=== PATIENT | female | born 1965 | race Caucasian/White ===

== ENCOUNTER → 2016-11-08 10:43 | Outpatient (CLI) | payer OTHER | LOC: D.US 10:43 → D.MAMMO 15:45 | DX: R92.8 Other abnormal and inconclusive findings on diagnostic imaging of breast (principal) ==

== ENCOUNTER 2016-12-15 09:38 | Outpatient (CLI) | payer OTHER | END 2016-12-15 12:06 | LOC: D.MAMMO 09:38 | DX: R92.8 Other abnormal and inconclusive findings on diagnostic imaging of breast (principal) ==

== ENCOUNTER 2019-05-02 09:00 | Outpatient (CLI) | payer MEDICARE | END 2019-05-02 10:00 | disposition home or self-care (01) | LOC: D.MAMMO 09:00 | PROVIDERS: ATTEND Family Medicine | DX: Z12.31 Encounter for screening mammogram for malignant neoplasm of breast (principal) ==